=== PATIENT | male | born 1960 | race Hispanic/Latino ===

== ENCOUNTER 2020-03-25 20:03 | Inpatient (IN) | payer OTHER ==
[~2020-03-25] VITALS: Ht 165.1 cm; Wt 61.1 kg
[2020-03-25 21:25] LABS: APPEARANCE,URINE Clear (CLEAR); BILIRUBIN,URINE Negative (NEGATIVE); COLOR,URINE Yellow (YELLOW); GLUCOSE, URINE (UA) TRACE mg/dL (NEGATIVE); KETONES,URINE Negative (NEGATIVE); LEUKOCYTE ESTERASE ,URINE Negative (NEGATIVE); NITRATE,URINE Negative (NEGATIVE); OCCULT BLOOD,URINE Nonhemolyzed Trace (NEGATIVE); PROTEIN,URINE Negative (NEGATIVE)
[2020-03-25 21:35] LABS: ABG BASE EXCESS -1.3 mmol/L (-2.0-3.0); ABG HCO3 22.6 mmol/L (21.0-28.0); ABG OXYGEN SATURATION 96.9 % (95.0-99.0); ABG PCO2 36 mmHg (35-48)
[2020-03-25] MEDS ORDERED: ALBUTEROL INHALER 90MCG/INH IH ONE (21:35)
[2020-03-25] MEDS ORDERED: DEXAMETHASONE SOD PHOSPHATE 10MG/ML 1ML VIAL ONE (21:36)
[2020-03-25 21:37] LABS: BACTERIA,URINE Rare /HPF (None Seen); RBC,URINE 0-1 /HPF (0-1); SQUAMOUS EPITHELIAL CELL,UR None Seen /HPF (0-2); WBC,URINE 0-1 /HPF (0-1)
[2020-03-25 21:39] LABS: BASOPHILS % (AUTO) 0.2 % (0.0-5.0); HEMATOCRIT 42.8 % (42-54); LYMPHOCYTES % (AUTO) 4.8 % (21.0-51.0); MEAN CORPUSCULAR HEMOGLOBIN 30.2 pg (27.0-33.0); MEAN CORPUSCULAR HGB CONC 34.8 g/dL (32.0-36.0); MEAN CORPUSCULAR VOLUME 86.6 fL (79-99); MONOCYTES % (AUTO) 7.3 % (3.0-13.0); NEUTROPHILS % (AUTO) 85.9 % (40.0-77.0); PLATELET COUNT (AUTO) 503 K/uL (130-400); RED BLOOD CELL COUNT(AUTO) 4.94 MIL/uL (4.50-6.20); RED CELL DISTRIBUTION WIDTH 12.4 % (11.0-15.5); WHITE BLOOD COUNT (AUTO) 13.6 K/uL (4.8-10.8)
[2020-03-25 21:53] LABS: INR 1.04 (0.85-1.15); PARTIAL THROMBOPLASTIN TIME 25.2 SEC (26.3-35.5); PROTHROMBIN TIME 11.2 SEC (9.6-11.6)
[2020-03-25 21:55] LABS: CREATININE 0.9 mg/dL (0.5-1.5); POTASSIUM 4.4 mmol/L (3.5-5.1)
[2020-03-25 22:00] LABS: ALBUMIN 2.7 g/dL (3.5-5.0); BILIRUBIN,TOTAL 0.4 mg/dL (0.2-1.0); TOTAL PROTEIN, SERUM 7.1 g/dL (6.0-8.3)
[2020-03-25] MEDS ORDERED: LEVOFLOXACIN 500 MG/D5W 100 ML 100 ML ONE (22:00)
[2020-03-25 22:06] LABS: B-TYPE NATRIURETIC PEPTIDE 20 pg/mL (0-100)
[2020-03-26] MEDS ORDERED: ONDANSETRON HCL 4 MG/2 ML VIAL IV PRN (07:00)
[2020-03-26] MEDS ORDERED: NITROGLYCERIN 0.4 MG SL TAB SL PRN (07:00)
[2020-03-26] MEDS: CEFTRIAXONE SODIUM 1 GM IVP SCH ×2 (07:00→19:00)
[2020-03-26] MEDS ORDERED: AZITHROMYCIN 500MG+NS 250ML 250 ML IV SCH (07:00)
[2020-03-26] MEDS ORDERED: GUAIFENESIN-DM 200/20 MG 10 ML PO PRN (07:00)
[2020-03-26] MEDS ORDERED: LACTULOSE 20 GM/30 ML UDCUP PO PRN (07:00)
[2020-03-26] MEDS: ERGOCALCIFEROL (VITAMIN D2) 50,000 UNIT CAPSULE PO SCH (07:00)
[2020-03-26] MEDS ORDERED: ACETAMINOPHEN 325 MG TAB PO PRN (07:00)
[2020-03-26] MEDS ORDERED: MORPHINE SULFATE 2 MG/ML 1ML SYG IV PRN (07:00)
[2020-03-26] MEDS ORDERED: ERGOCALCIFEROL (VITAMIN D2) 50,000 UNIT CAPSULE ONE (08:32)
[2020-03-26] MEDS ORDERED: DOXYCYCLINE HYCLATE 100 MG TABLET PO ONE ×2 (08:32→21:35)
[2020-03-26] MEDS ORDERED: METHYLPREDNISOLONE SOD SUCC 40MG/ML 1ML ONE ×3 (08:32→21:34)
[2020-03-26] MEDS ORDERED: ASCORBIC ACID 500 MG TAB ONE (08:32)
[2020-03-26] MEDS ORDERED: ZINC SULFATE 220 CAPSULE ONE (08:33)
[2020-03-26] MEDS ORDERED: AZITHROMYCIN 500MG+NS 250ML 250 ML IV ONE (08:33)
[2020-03-26] MEDS ORDERED: BENZONATATE 100 MG CAPSULE PO ONE ×3 (08:33→21:35)
[2020-03-26] MEDS ORDERED: ENOXAPARIN SODIUM 40 MG/0.4 ML SYRINGE SQ ONE (08:33)
[2020-03-26] MEDS ORDERED: CEFTRIAXONE SODIUM 1 GM ONE ×2 (08:34→21:35)
[2020-03-26] MEDS ORDERED: FAMOTIDINE/PF 20 MG/2 ML VIAL IV ONE ×2 (08:34→21:36)
[2020-03-26] MEDS ORDERED: SODIUM CHLORIDE 0.9% 50 ML IV ONE (08:35)
[2020-03-26] MEDS ORDERED: ENOXAPARIN SODIUM 40 MG/0.4 ML SYRINGE SQ SCH ×2 (09:00)
[2020-03-26] MEDS: FAMOTIDINE/PF 20 MG/2 ML VIAL IV SCH ×2 (09:00→21:00)
[2020-03-26] MEDS: ZINC SULFATE 220 CAPSULE PO SCH (09:00)
[2020-03-26] MEDS ORDERED: DOXYCYCLINE HYCLATE 100 MG TABLET PO SCH (09:00)
[2020-03-26] MEDS: ASCORBIC ACID 500 MG TAB PO SCH (09:00)
[2020-03-26] MEDS: BENZONATATE 100 MG CAPSULE PO SCH ×3 (09:00→21:00)
[2020-03-26] MEDS: METHYLPREDNISOLONE SOD SUCC 40MG/ML 1ML IVP SCH ×3 (09:00→21:00)
[2020-03-26] MEDS: ALBUTEROL INHALER 90MCG/INH IH SCH ×4 (10:00→22:00)
[2020-03-26] MEDS ORDERED: PHARMACY COMMUNICATION MISC SCH (12:00)
[2020-03-26] MEDS: PHARMACY COMMUNICATION**REMDESIVIR ORDER MISC SCH ×2 (13:00→21:00)
[2020-03-26] MEDS ORDERED: PHARMACY COMMUNICATION** REMDESIVIR ORDER MISC SCH (13:15)
[2020-03-26] MEDS: ENOXAPARIN SODIUM 80 MG/0.8 ML SQ SCH (21:00)
[2020-03-27] MEDS: ALBUTEROL INHALER 90MCG/INH IH SCH ×6 (02:00→20:01)
[2020-03-27] MEDS: PHARMACY COMMUNICATION**REMDESIVIR ORDER MISC SCH ×3 (05:00→20:01)
[2020-03-27 05:29] LABS: BASOPHILS % (AUTO) 0.2 % (0.0-5.0); HEMATOCRIT 43.4 % (42-54); LYMPHOCYTES % (AUTO) 6.3 % (21.0-51.0); MEAN CORPUSCULAR HEMOGLOBIN 29.1 pg (27.0-33.0); MEAN CORPUSCULAR HGB CONC 33.6 g/dL (32.0-36.0); MEAN CORPUSCULAR VOLUME 86.5 fL (79-99); MONOCYTES % (AUTO) 6.4 % (3.0-13.0); NEUTROPHILS % (AUTO) 84.2 % (40.0-77.0); PLATELET COUNT (AUTO) 425 K/uL (130-400); RED BLOOD CELL COUNT(AUTO) 5.02 MIL/uL (4.50-6.20); RED CELL DISTRIBUTION WIDTH 12.2 % (11.0-15.5); WHITE BLOOD COUNT (AUTO) 12.9 K/uL (4.8-10.8)
[2020-03-27 05:48] LABS: ALANINE AMINOTRANSFERASE 54 U/L (12-78); ALBUMIN 2.9 g/dL (3.5-5.0); ASPARTATE AMINOTRANSFERASE 21 U/L (10-37); BILIRUBIN,TOTAL 0.6 mg/dL (0.2-1.0); CARBON DIOXIDE 27 mmol/L (21-32); CHLORIDE 101 mmol/L (101-111); CREATININE 0.9 mg/dL (0.5-1.5); GLOMERULAR FILTR. RATE CALC 91 mL/min (>60); GLUCOSE,RANDOM 254 mg/dL (70-105); LACTATE DEHYDROGENASE 499 U/L (81-234); POTASSIUM 4.5 mmol/L (3.5-5.1); SODIUM SERUM 137 mmol/L (136-145); TOTAL PROTEIN, SERUM 7.5 g/dL (6.0-8.3); UREA NITROGEN, BLOOD 21 mg/dL (7-18)
[2020-03-27] MEDS: CEFTRIAXONE SODIUM 1 GM IVP SCH ×2 (07:00→20:01)
[2020-03-27] MEDS: ERGOCALCIFEROL (VITAMIN D2) 50,000 UNIT CAPSULE PO SCH (07:00)
[2020-03-27] MEDS: INSULIN HUMULIN R 100 UNIT/ML 3ML SQ SCH ×4 (07:30→21:25)
[2020-03-27] MEDS ORDERED: ENOXAPARIN SODIUM 80 MG/0.8 ML SQ ONE (08:57)
[2020-03-27] MEDS ORDERED: ASCORBIC ACID 500 MG TAB ONE (08:57)
[2020-03-27] MEDS ORDERED: METHYLPREDNISOLONE SOD SUCC 40MG/ML 1ML ONE ×2 (08:57→13:11)
[2020-03-27] MEDS ORDERED: ZINC SULFATE 220 CAPSULE ONE (08:58)
[2020-03-27] MEDS ORDERED: BENZONATATE 100 MG CAPSULE PO ONE ×2 (08:58→13:04)
[2020-03-27] MEDS ORDERED: CEFTRIAXONE SODIUM 1 GM ONE (08:58)
[2020-03-27] MEDS ORDERED: ERGOCALCIFEROL (VITAMIN D2) 50,000 UNIT CAPSULE ONE (08:58)
[2020-03-27] MEDS ORDERED: FAMOTIDINE/PF 20 MG/2 ML VIAL IV ONE (08:59)
[2020-03-27] MEDS: BENZONATATE 100 MG CAPSULE PO SCH ×3 (09:00→20:01)
[2020-03-27] MEDS: ZINC SULFATE 220 CAPSULE PO SCH (09:00)
[2020-03-27] MEDS ORDERED: INSULIN HUMULIN R 100 UNIT/ML 3ML ONE ×3 (09:00→16:50)
[2020-03-27] MEDS: ENOXAPARIN SODIUM 80 MG/0.8 ML SQ SCH ×2 (09:00→20:03)
[2020-03-27] MEDS: ASCORBIC ACID 500 MG TAB PO SCH (09:00)
[2020-03-27] MEDS: METHYLPREDNISOLONE SOD SUCC 40MG/ML 1ML IVP SCH ×3 (09:00→20:01)
[2020-03-27] MEDS: FAMOTIDINE/PF 20 MG/2 ML VIAL IV SCH ×2 (09:00→20:01)
[2020-03-27] MEDS ORDERED: REMDESIVIR (EUA) 520 200 MG in SODIUM CHLORIDE 0.9% 250 ML IV SCH (11:15)
[2020-03-27] MEDS ORDERED: COMPOUND IV REFRIGERATED 1 EACH IVSOLN MISC PRN (11:15)
--- NOTE | 2020-03-27 13:15 | NUR ---
MARA MARSHALL Spoke to patient's spouse (Lashae Keller [phone]) via phone. As per spouse, patient lives at address listed on file with spouse, and has no DME or home services. Mrs Keller states that she is COVID positive as of 03/25/20 with 4 days worth of symptoms before testing. She is quarantining at home, and I explained to her that she being able to help transport patient home upon discharge is not advisable. CM to follow up. Addendum: 03/27/20 at 1320 by MARYSOL PERALTA Amended: Links added.
[2020-03-27 18:30] VITALS: BP 131/76
[2020-03-27 20:36] VITALS: BP 133/74
[2020-03-27 23:37] VITALS: BP_SYST 117
[2020-03-28] MEDS: ALBUTEROL INHALER 90MCG/INH IH SCH ×6 (02:44→22:00)
[2020-03-28 03:57] VITALS: BP 120/64
[2020-03-28 04:26] LABS: BASOPHILS % (AUTO) 0.3 % (0.0-5.0); HEMATOCRIT 41.5 % (42-54); LYMPHOCYTES % (AUTO) 6.1 % (21.0-51.0); MEAN CORPUSCULAR HEMOGLOBIN 29.6 pg (27.0-33.0); MEAN CORPUSCULAR HGB CONC 34.7 g/dL (32.0-36.0); MEAN CORPUSCULAR VOLUME 85.4 fL (79-99); MONOCYTES % (AUTO) 6.3 % (3.0-13.0); NEUTROPHILS % (AUTO) 82.9 % (40.0-77.0); PLATELET COUNT (AUTO) 467 K/uL (130-400); RED BLOOD CELL COUNT(AUTO) 4.86 MIL/uL (4.50-6.20); RED CELL DISTRIBUTION WIDTH 12.1 % (11.0-15.5)
[2020-03-28] MEDS: PHARMACY COMMUNICATION**REMDESIVIR ORDER MISC SCH ×3 (04:27→20:58)
[2020-03-28 04:44] LABS: ALANINE AMINOTRANSFERASE 42 U/L (12-78); ALBUMIN 2.6 g/dL (3.5-5.0); ASPARTATE AMINOTRANSFERASE 17 U/L (10-37); BILIRUBIN,TOTAL 0.5 mg/dL (0.2-1.0); CARBON DIOXIDE 27 mmol/L (21-32); CHLORIDE 100 mmol/L (101-111); CREATININE 0.8 mg/dL (0.5-1.5); GLOMERULAR FILTR. RATE CALC 104 mL/min (>60); GLUCOSE,RANDOM 173 mg/dL (70-105); LACTATE DEHYDROGENASE 454 U/L (81-234); POTASSIUM 4.6 mmol/L (3.5-5.1); SODIUM SERUM 136 mmol/L (136-145); TOTAL PROTEIN, SERUM 6.8 g/dL (6.0-8.3); UREA NITROGEN, BLOOD 22 mg/dL (7-18)
[2020-03-28] MEDS: PHARMACY COMMUNICATION MISC SCH (05:24)
[2020-03-28] MEDS: ERGOCALCIFEROL (VITAMIN D2) 50,000 UNIT CAPSULE PO SCH (05:27)
[2020-03-28] MEDS: INSULIN HUMULIN R 100 UNIT/ML 3ML SQ SCH ×4 (05:47→20:59)
[2020-03-28 08:26] VITALS: BP 118/74
[2020-03-28] MEDS: ASCORBIC ACID 500 MG TAB PO SCH (08:48)
[2020-03-28] MEDS: FAMOTIDINE/PF 20 MG/2 ML VIAL IV SCH ×2 (08:48→20:58)
[2020-03-28] MEDS: CEFTRIAXONE SODIUM 1 GM IVP SCH ×2 (08:49→20:58)
[2020-03-28] MEDS: ZINC SULFATE 220 CAPSULE PO SCH (08:49)
[2020-03-28] MEDS: ENOXAPARIN SODIUM 80 MG/0.8 ML SQ SCH ×2 (08:50→20:58)
[2020-03-28] MEDS: METHYLPREDNISOLONE SOD SUCC 40MG/ML 1ML IVP SCH ×3 (08:53→20:58)
[2020-03-28] MEDS: BENZONATATE 100 MG CAPSULE PO SCH ×3 (08:53→20:58)
[2020-03-28 12:11] VITALS: BP 108/60
[2020-03-28] MEDS: REMDESIVIR (EUA) 520 100 MG in SODIUM CHLORIDE 0.9% 250 ML IV SCH (13:03)
[2020-03-28 15:25] VITALS: BP 108/76
[2020-03-28 19:00] VITALS: BP 118/51
[2020-03-28 23:00] VITALS: BP 122/62
[2020-03-28] MEDS: INSULIN GLARGINE 100 UNITS/ML 10 ML VIAL SQ SCH (23:30)
[2020-03-29] MEDS: ALBUTEROL INHALER 90MCG/INH IH SCH ×6 (02:00→19:52)
[2020-03-29 03:00] VITALS: BP 117/70
[2020-03-29 04:36] LABS: BASOPHILS % (AUTO) 0.3 % (0.0-5.0); HEMATOCRIT 40.8 % (42-54); LYMPHOCYTES % (AUTO) 5.8 % (21.0-51.0); MEAN CORPUSCULAR HEMOGLOBIN 29.7 pg (27.0-33.0); MEAN CORPUSCULAR HGB CONC 34.8 g/dL (32.0-36.0); MEAN CORPUSCULAR VOLUME 85.4 fL (79-99); MONOCYTES % (AUTO) 5.5 % (3.0-13.0); NEUTROPHILS % (AUTO) 84.3 % (40.0-77.0); PLATELET COUNT (AUTO) 484 K/uL (130-400); RED BLOOD CELL COUNT(AUTO) 4.78 MIL/uL (4.50-6.20); RED CELL DISTRIBUTION WIDTH 12.1 % (11.0-15.5); WHITE BLOOD COUNT (AUTO) 14.5 K/uL (4.8-10.8)
[2020-03-29 04:50] LABS: ALANINE AMINOTRANSFERASE 32 U/L (12-78); ALBUMIN 2.5 g/dL (3.5-5.0); ASPARTATE AMINOTRANSFERASE 16 U/L (10-37); BILIRUBIN,TOTAL 0.5 mg/dL (0.2-1.0); CARBON DIOXIDE 27 mmol/L (21-32); CHLORIDE 99 mmol/L (101-111); CREATININE 0.7 mg/dL (0.5-1.5); GLOMERULAR FILTR. RATE CALC 121 mL/min (>60); GLUCOSE,RANDOM 194 mg/dL (70-105); LACTATE DEHYDROGENASE 473 U/L (81-234); POTASSIUM 4.7 mmol/L (3.5-5.1); SODIUM SERUM 135 mmol/L (136-145); TOTAL PROTEIN, SERUM 6.6 g/dL (6.0-8.3); UREA NITROGEN, BLOOD 25 mg/dL (7-18)
[2020-03-29] MEDS: PHARMACY COMMUNICATION MISC SCH (05:42)
[2020-03-29] MEDS: PHARMACY COMMUNICATION**REMDESIVIR ORDER MISC SCH ×3 (05:44→19:50)
[2020-03-29] MEDS: ERGOCALCIFEROL (VITAMIN D2) 50,000 UNIT CAPSULE PO SCH (06:05)
[2020-03-29] MEDS: INSULIN HUMULIN R 100 UNIT/ML 3ML SQ SCH ×7 (06:43→19:51)
[2020-03-29] MEDS: FAMOTIDINE/PF 20 MG/2 ML VIAL IV SCH ×2 (09:13→19:49)
[2020-03-29] MEDS: CEFTRIAXONE SODIUM 1 GM IVP SCH ×2 (09:13→19:49)
[2020-03-29] MEDS: ASCORBIC ACID 500 MG TAB PO SCH (09:14)
[2020-03-29] MEDS: ZINC SULFATE 220 CAPSULE PO SCH (09:14)
[2020-03-29] MEDS: METHYLPREDNISOLONE SOD SUCC 40MG/ML 1ML IVP SCH ×3 (09:14→19:49)
[2020-03-29] MEDS: BENZONATATE 100 MG CAPSULE PO SCH ×3 (09:14→19:50)
[2020-03-29] MEDS: ENOXAPARIN SODIUM 80 MG/0.8 ML SQ SCH ×2 (09:15→19:52)
[2020-03-29 09:33] VITALS: BP 95/54
[2020-03-29 12:25] VITALS: BP 116/67
[2020-03-29] MEDS: REMDESIVIR (EUA) 520 100 MG in SODIUM CHLORIDE 0.9% 250 ML IV SCH (13:26)
[2020-03-29 16:30] VITALS: BP 111/67
[2020-03-29 19:00] VITALS: BP 101/53
[2020-03-29] MEDS: INSULIN GLARGINE 100 UNITS/ML 10 ML VIAL SQ SCH (19:51)
[2020-03-29 23:00] VITALS: BP 121/60
[2020-03-30] MEDS: ALBUTEROL INHALER 90MCG/INH IH SCH ×3 (01:20→22:00)
[2020-03-30] MEDS: ACETAMINOPHEN 325 MG TAB PO PRN (02:38)
[2020-03-30 03:00] VITALS: BP 112/71
[2020-03-30] MEDS: PHARMACY COMMUNICATION**REMDESIVIR ORDER MISC SCH ×3 (04:09→20:37)
[2020-03-30] MEDS: PHARMACY COMMUNICATION MISC SCH (04:24)
[2020-03-30 04:54] LABS: BASOPHILS % (AUTO) 0.2 % (0.0-5.0); EOSINOPHILS % (AUTO) 0.1 % (0.0-8.0); HEMATOCRIT 42.7 % (42-54); MEAN CORPUSCULAR HEMOGLOBIN 29.5 pg (27.0-33.0); MEAN CORPUSCULAR HGB CONC 34.7 g/dL (32.0-36.0); MEAN CORPUSCULAR VOLUME 85.2 fL (79-99); MONOCYTES % (AUTO) 4.3 % (3.0-13.0); NEUTROPHILS % (AUTO) 87.8 % (40.0-77.0); PLATELET COUNT (AUTO) 498 K/uL (130-400); RED BLOOD CELL COUNT(AUTO) 5.01 MIL/uL (4.50-6.20); RED CELL DISTRIBUTION WIDTH 12.3 % (11.0-15.5); WHITE BLOOD COUNT (AUTO) 15.5 K/uL (4.8-10.8)
[2020-03-30 05:12] LABS: ALBUMIN 2.6 g/dL (3.5-5.0); BILIRUBIN,TOTAL 0.5 mg/dL (0.2-1.0); CREATININE 0.8 mg/dL (0.5-1.5); CRP QUANTITATIVE 36.9 mg/L (0.00-9.0); TOTAL PROTEIN, SERUM 6.8 g/dL (6.0-8.3)
[2020-03-30] MEDS: ERGOCALCIFEROL (VITAMIN D2) 50,000 UNIT CAPSULE PO SCH (05:28)
[2020-03-30] MEDS: INSULIN HUMULIN R 100 UNIT/ML 3ML SQ SCH ×8 (05:29→20:37)
[2020-03-30 08:00] VITALS: BP 141/68
[2020-03-30] MEDS: FAMOTIDINE/PF 20 MG/2 ML VIAL IV SCH ×2 (09:45→20:25)
[2020-03-30] MEDS: ZINC SULFATE 220 CAPSULE PO SCH (09:49)
[2020-03-30] MEDS: DEXAMETHASONE SOD PHOSPHATE 4 MG/ML 1ML VIAL IVP SCH (09:49)
[2020-03-30] MEDS: ASCORBIC ACID 500 MG TAB PO SCH (09:49)
[2020-03-30] MEDS: CEFTRIAXONE SODIUM 1 GM IVP SCH ×2 (09:49→20:25)
[2020-03-30] MEDS: BENZONATATE 100 MG CAPSULE PO SCH ×3 (09:49→20:35)
[2020-03-30] MEDS: ENOXAPARIN SODIUM 80 MG/0.8 ML SQ SCH ×2 (09:50→20:28)
[2020-03-30 12:00] VITALS: BP 105/62
[2020-03-30] MEDS: REMDESIVIR (EUA) 520 100 MG in SODIUM CHLORIDE 0.9% 250 ML IV SCH (13:31)
[2020-03-30 16:00] VITALS: BP 106/64
[2020-03-30 20:00] VITALS: BP 103/59
[2020-03-30] MEDS: INSULIN GLARGINE 100 UNITS/ML 10 ML VIAL SQ SCH (20:28)
[2020-03-31] VITALS: BP 106/69
[2020-03-31] MEDS: ACETAMINOPHEN 325 MG TAB PO PRN (00:46)
[2020-03-31] MEDS: ALBUTEROL INHALER 90MCG/INH IH SCH ×6 (02:00→21:05)
[2020-03-31 03:41] VITALS: BP 116/48
[2020-03-31] MEDS: PHARMACY COMMUNICATION**REMDESIVIR ORDER MISC SCH ×3 (04:22→20:26)
[2020-03-31 05:26] LABS: BASOPHILS % (AUTO) 0.3 % (0.0-5.0); EOSINOPHILS % (AUTO) 0.8 % (0.0-8.0); HEMATOCRIT 42.1 % (42-54); LYMPHOCYTES % (AUTO) 8.2 % (21.0-51.0); MEAN CORPUSCULAR HEMOGLOBIN 29.5 pg (27.0-33.0); MEAN CORPUSCULAR HGB CONC 34.4 g/dL (32.0-36.0); MEAN CORPUSCULAR VOLUME 85.7 fL (79-99); MONOCYTES % (AUTO) 5.5 % (3.0-13.0); NEUTROPHILS % (AUTO) 83.2 % (40.0-77.0); PLATELET COUNT (AUTO) 516 K/uL (130-400); RED BLOOD CELL COUNT(AUTO) 4.91 MIL/uL (4.50-6.20); RED CELL DISTRIBUTION WIDTH 12.3 % (11.0-15.5); WHITE BLOOD COUNT (AUTO) 18.4 K/uL (4.8-10.8)
[2020-03-31] MEDS: INSULIN HUMULIN R 100 UNIT/ML 3ML SQ SCH ×7 (05:39→20:48)
[2020-03-31 05:44] LABS: ALBUMIN 2.6 g/dL (3.5-5.0); BILIRUBIN,TOTAL 0.6 mg/dL (0.2-1.0); CREATININE 0.9 mg/dL (0.5-1.5); CRP QUANTITATIVE 49.1 mg/L (0.00-9.0); POTASSIUM 4.2 mmol/L (3.5-5.1); TOTAL PROTEIN, SERUM 6.6 g/dL (6.0-8.3)
[2020-03-31] MEDS: PHARMACY COMMUNICATION MISC SCH (06:00)
[2020-03-31 08:00] VITALS: BP 100/61
[2020-03-31] MEDS: ENOXAPARIN SODIUM 80 MG/0.8 ML SQ SCH ×2 (08:23→20:21)
[2020-03-31] MEDS: DEXAMETHASONE SOD PHOSPHATE 4 MG/ML 1ML VIAL IVP SCH (08:23)
[2020-03-31] MEDS: BENZONATATE 100 MG CAPSULE PO SCH ×3 (08:23→20:21)
[2020-03-31] MEDS: FAMOTIDINE/PF 20 MG/2 ML VIAL IV SCH ×2 (08:24→20:21)
[2020-03-31] MEDS: ZINC SULFATE 220 CAPSULE PO SCH (08:24)
[2020-03-31] MEDS: ASCORBIC ACID 500 MG TAB PO SCH (08:24)
[2020-03-31] MEDS: CEFTRIAXONE SODIUM 1 GM IVP SCH ×2 (08:24→20:21)
[2020-03-31 12:00] VITALS: BP 94/56
[2020-03-31] MEDS: REMDESIVIR (EUA) 520 100 MG in SODIUM CHLORIDE 0.9% 250 ML IV SCH (13:19)
[2020-03-31 16:00] VITALS: BP 124/66
[2020-03-31] MEDS: INSULIN GLARGINE 100 UNITS/ML 10 ML VIAL SQ SCH (20:49)
[2020-03-31 21:30] VITALS: BP 114/67
[2020-04-01] VITALS (7 sets, daily range): BP systolic 94–119; BP diastolic 52–66
[2020-04-01] MEDS: ALBUTEROL INHALER 90MCG/INH IH SCH ×6 (02:40→20:04)
--- NOTE | 2020-04-01 04:10 | NUR ---
NOTE ELTON FLORES REPORTED UPON ASSESSING PT'S VS HIS O2 WAS FLUCTUATING FROM 88-90% WITH THE 6 L O2 VIA NC. I ASSESSED PT AND HIS O2 WAS 92%. PT SITTING UP IN BED AWAKE WATCHING TV. NO REPORTS OF DYSPNEA OR SOB, PT REPORTS HE FEELS "FINE". ENCOURAGED PT TO NOTIFY ME IF HE FEELS IF HE NEEDS EXTRA ASSISTANCE WITH HIS OXYGENATION- PT VERBALIZED UNDERSTANDING.
[2020-04-01 04:44] LABS: BASOPHILS % (AUTO) 0.2 % (0.0-5.0); EOSINOPHILS % (AUTO) 0.4 % (0.0-8.0); HEMATOCRIT 41.4 % (42-54); LYMPHOCYTES % (AUTO) 6.9 % (21.0-51.0); MEAN CORPUSCULAR HEMOGLOBIN 29.3 pg (27.0-33.0); MEAN CORPUSCULAR HGB CONC 34.3 g/dL (32.0-36.0); MEAN CORPUSCULAR VOLUME 85.4 fL (79-99); MONOCYTES % (AUTO) 6.7 % (3.0-13.0); NEUTROPHILS % (AUTO) 84.5 % (40.0-77.0); PLATELET COUNT (AUTO) 460 K/uL (130-400); RED BLOOD CELL COUNT(AUTO) 4.85 MIL/uL (4.50-6.20); RED CELL DISTRIBUTION WIDTH 12.5 % (11.0-15.5)
[2020-04-01] MEDS: PHARMACY COMMUNICATION**REMDESIVIR ORDER MISC SCH ×3 (05:00→19:10)
[2020-04-01 05:07] LABS: ALBUMIN 2.5 g/dL (3.5-5.0); BILIRUBIN,TOTAL 0.6 mg/dL (0.2-1.0); CREATININE 0.8 mg/dL (0.5-1.5); CRP QUANTITATIVE 104.6 mg/L (0.00-9.0); POTASSIUM 4.1 mmol/L (3.5-5.1); TOTAL PROTEIN, SERUM 6.5 g/dL (6.0-8.3)
[2020-04-01] MEDS: INSULIN HUMULIN R 100 UNIT/ML 3ML SQ SCH ×9 (05:20→20:08)
[2020-04-01] MEDS: PHARMACY COMMUNICATION MISC SCH (06:00)
--- NOTE | 2020-04-01 06:20 | NUR ---
NOTE PT CALLED [facility] OPERATOR LIGHT THAT HE NEEDED HELP. PT SITTING ON EDGE OF BED WITH NC ON. PT REPORTS THAT HE GOT UP TO GO TO THE BATHROOM AND THEN BEGAN HAVING DYSPNEA AND SOB. RR 22, SpO2 74%. PLACED PT ON VENTI MASK AT 10 L. AFTER 3 2 MINS PT SpO2 93%, HR 86, RR 20. TEACHING FOR BREATHING TECHNIQUES GIVEN- PT VERBALIZED UNDERSTANDING. PT NO LONGER HAVING DYSPNEA OR SOB. PT PLACED HIMSELF IN THE PRONE POSITION. ENCOURAGED THE PT TO CALL IF HE NEEDS ANY HELP- PT VERBALIZED UNDERSTANDING.
[2020-04-01] MEDS: ASCORBIC ACID 500 MG TAB PO SCH (08:01)
[2020-04-01] MEDS: CEFTRIAXONE SODIUM 1 GM IVP SCH ×2 (08:01→20:01)
[2020-04-01] MEDS: DEXAMETHASONE SOD PHOSPHATE 4 MG/ML 1ML VIAL IVP SCH (08:01)
[2020-04-01] MEDS: FAMOTIDINE/PF 20 MG/2 ML VIAL IV SCH ×2 (08:01→20:01)
[2020-04-01] MEDS: ZINC SULFATE 220 CAPSULE PO SCH (08:01)
[2020-04-01] MEDS: ENOXAPARIN SODIUM 80 MG/0.8 ML SQ SCH ×2 (08:02→20:01)
[2020-04-01] MEDS: BENZONATATE 100 MG CAPSULE PO SCH ×3 (08:10→20:01)
[2020-04-01] MEDS: INSULIN GLARGINE 100 UNITS/ML 10 ML VIAL SQ SCH (20:03)
[2020-04-02] MEDS: ALBUTEROL INHALER 90MCG/INH IH SCH ×3 (02:00→10:23)
[2020-04-02 04:04] VITALS: BP 107/58
[2020-04-02] MEDS: PHARMACY COMMUNICATION**REMDESIVIR ORDER MISC SCH (04:05)
[2020-04-02] MEDS: INSULIN HUMULIN R 100 UNIT/ML 3ML SQ SCH ×6 (05:30→20:34)
[2020-04-02 05:47] LABS: BASOPHILS % (AUTO) 0.1 % (0.0-5.0); EOSINOPHILS % (AUTO) 0.3 % (0.0-8.0); LYMPHOCYTES % (AUTO) 7.3 % (21.0-51.0); MEAN CORPUSCULAR HEMOGLOBIN 29.6 pg (27.0-33.0); MEAN CORPUSCULAR HGB CONC 34.6 g/dL (32.0-36.0); MEAN CORPUSCULAR VOLUME 85.6 fL (79-99); MONOCYTES % (AUTO) 8.7 % (3.0-13.0); NEUTROPHILS % (AUTO) 81.8 % (40.0-77.0); PLATELET COUNT (AUTO) 494 K/uL (130-400); RED BLOOD CELL COUNT(AUTO) 4.79 MIL/uL (4.50-6.20); RED CELL DISTRIBUTION WIDTH 12.4 % (11.0-15.5); WHITE BLOOD COUNT (AUTO) 15.9 K/uL (4.8-10.8)
[2020-04-02 06:09] LABS: ALBUMIN 2.6 g/dL (3.5-5.0); BILIRUBIN,TOTAL 0.6 mg/dL (0.2-1.0); CREATININE 0.8 mg/dL (0.5-1.5); POTASSIUM 3.8 mmol/L (3.5-5.1); TOTAL PROTEIN, SERUM 6.6 g/dL (6.0-8.3)
[2020-04-02 07:00] VITALS: BP 106/61
[2020-04-02] MEDS: FAMOTIDINE/PF 20 MG/2 ML VIAL IV SCH (09:41)
[2020-04-02] MEDS: ZINC SULFATE 220 CAPSULE PO SCH (09:41)
[2020-04-02] MEDS: DEXAMETHASONE SOD PHOSPHATE 4 MG/ML 1ML VIAL IVP SCH (09:41)
[2020-04-02] MEDS: ENOXAPARIN SODIUM 80 MG/0.8 ML SQ SCH (09:41)
[2020-04-02] MEDS: BENZONATATE 100 MG CAPSULE PO SCH ×3 (09:41→20:32)
[2020-04-02] MEDS: CEFTRIAXONE SODIUM 1 GM IVP SCH (09:41)
[2020-04-02] MEDS: ASCORBIC ACID 500 MG TAB PO SCH (09:57)
[2020-04-02 11:00] VITALS: BP 132/60
[2020-04-02 15:00] VITALS: BP 100/60
[2020-04-02] MEDS: FAMOTIDINE 20MG TAB 20 MG TAB PO SCH (20:32)
[2020-04-02] MEDS: INSULIN GLARGINE 100 UNITS/ML 10 ML VIAL SQ SCH (20:33)
[2020-04-02 20:36] VITALS: BP 95/63
[2020-04-02] MEDS: ENOXAPARIN SODIUM 40 MG/0.4 ML SYRINGE SQ SCH (20:36)
[2020-04-03] VITALS (7 sets, daily range): BP systolic 101–154; BP diastolic 51–85
[2020-04-03 05:29] LABS: BASOPHILS % (AUTO) 0.1 % (0.0-5.0); EOSINOPHILS % (AUTO) 0.2 % (0.0-8.0); HEMATOCRIT 41.3 % (42-54); LYMPHOCYTES % (AUTO) 9.1 % (21.0-51.0); MEAN CORPUSCULAR HEMOGLOBIN 29.4 pg (27.0-33.0); MEAN CORPUSCULAR HGB CONC 34.1 g/dL (32.0-36.0); MEAN CORPUSCULAR VOLUME 86.2 fL (79-99); MONOCYTES % (AUTO) 9.8 % (3.0-13.0); NEUTROPHILS % (AUTO) 79.2 % (40.0-77.0); PLATELET COUNT (AUTO) 478 K/uL (130-400); RED BLOOD CELL COUNT(AUTO) 4.79 MIL/uL (4.50-6.20); RED CELL DISTRIBUTION WIDTH 12.2 % (11.0-15.5); WHITE BLOOD COUNT (AUTO) 12.1 K/uL (4.8-10.8)
[2020-04-03] MEDS: INSULIN HUMULIN R 100 UNIT/ML 3ML SQ SCH ×7 (05:48→20:43)
[2020-04-03 06:05] LABS: ALANINE AMINOTRANSFERASE 24 U/L (12-78); ALBUMIN 2.5 g/dL (3.5-5.0); ASPARTATE AMINOTRANSFERASE 17 U/L (10-37); BILIRUBIN,TOTAL 0.7 mg/dL (0.2-1.0); CARBON DIOXIDE 28 mmol/L (21-32); CHLORIDE 99 mmol/L (101-111); CREATININE 0.9 mg/dL (0.5-1.5); GLOMERULAR FILTR. RATE CALC 91 mL/min (>60); GLUCOSE,RANDOM 74 mg/dL (70-105); LACTATE DEHYDROGENASE 291 U/L (81-234); POTASSIUM 4.2 mmol/L (3.5-5.1); SODIUM SERUM 135 mmol/L (136-145); TOTAL PROTEIN, SERUM 6.5 g/dL (6.0-8.3); UREA NITROGEN, BLOOD 24 mg/dL (7-18)
[2020-04-03] MEDS: FAMOTIDINE 20MG TAB 20 MG TAB PO SCH ×2 (08:56→20:47)
[2020-04-03] MEDS: DEXAMETHASONE 4 MG TAB PO SCH (08:56)
[2020-04-03] MEDS: ASCORBIC ACID 500 MG TAB PO SCH (08:56)
[2020-04-03] MEDS: BENZONATATE 100 MG CAPSULE PO SCH ×3 (08:57→20:47)
[2020-04-03] MEDS: ZINC SULFATE 220 CAPSULE PO SCH (08:57)
[2020-04-03] MEDS: ENOXAPARIN SODIUM 40 MG/0.4 ML SYRINGE SQ SCH ×2 (08:57→20:47)
--- NOTE | 2020-04-03 20:00 | NUR ---
assessment and teaching patient awake, alert, ox3, no sob, no c/o pain at this time, sitting bedside chair, oxygen at 5 l n/c, reinforce prone position , teach patient plan of care and expected outcome,patient verbalizes understanding via teach back
[2020-04-03] MEDS: INSULIN GLARGINE 100 UNITS/ML 10 ML VIAL SQ SCH (21:40)
[2020-04-04 04:08] VITALS: BP 111/64
[2020-04-04 04:54] LABS: BASOPHILS % (AUTO) 0.2 % (0.0-5.0); EOSINOPHILS % (AUTO) 0.1 % (0.0-8.0); HEMATOCRIT 42.5 % (42-54); LYMPHOCYTES % (AUTO) 13.6 % (21.0-51.0); MEAN CORPUSCULAR HEMOGLOBIN 29.4 pg (27.0-33.0); MEAN CORPUSCULAR HGB CONC 34.4 g/dL (32.0-36.0); MEAN CORPUSCULAR VOLUME 85.7 fL (79-99); MONOCYTES % (AUTO) 9.4 % (3.0-13.0); NEUTROPHILS % (AUTO) 75.6 % (40.0-77.0); PLATELET COUNT (AUTO) 455 K/uL (130-400); RED BLOOD CELL COUNT(AUTO) 4.96 MIL/uL (4.50-6.20); RED CELL DISTRIBUTION WIDTH 12.2 % (11.0-15.5); WHITE BLOOD COUNT (AUTO) 11.8 K/uL (4.8-10.8)
[2020-04-04 05:08] LABS: ALANINE AMINOTRANSFERASE 26 U/L (12-78); ALBUMIN 2.7 g/dL (3.5-5.0); ASPARTATE AMINOTRANSFERASE 16 U/L (10-37); BILIRUBIN,TOTAL 0.8 mg/dL (0.2-1.0); CARBON DIOXIDE 28 mmol/L (21-32); CHLORIDE 100 mmol/L (101-111); CREATININE 0.9 mg/dL (0.5-1.5); GLOMERULAR FILTR. RATE CALC 91 mL/min (>60); GLUCOSE,RANDOM 67 mg/dL (70-105); LACTATE DEHYDROGENASE 244 U/L (81-234); POTASSIUM 4.3 mmol/L (3.5-5.1); SODIUM SERUM 135 mmol/L (136-145); TOTAL PROTEIN, SERUM 6.7 g/dL (6.0-8.3); UREA NITROGEN, BLOOD 27 mg/dL (7-18)
[2020-04-04] MEDS: INSULIN HUMULIN R 100 UNIT/ML 3ML SQ SCH ×6 (05:55→23:27)
[2020-04-04 07:45] VITALS: BP 102/73
[2020-04-04] MEDS: DEXAMETHASONE 4 MG TAB PO SCH (09:54)
[2020-04-04] MEDS: FAMOTIDINE 20MG TAB 20 MG TAB PO SCH ×2 (09:54→23:11)
[2020-04-04] MEDS: BENZONATATE 100 MG CAPSULE PO SCH ×3 (09:54→23:12)
[2020-04-04] MEDS: ASCORBIC ACID 500 MG TAB PO SCH (09:54)
[2020-04-04] MEDS: ZINC SULFATE 220 CAPSULE PO SCH (09:55)
[2020-04-04] MEDS: ENOXAPARIN SODIUM 40 MG/0.4 ML SYRINGE SQ SCH ×2 (09:56→23:12)
[2020-04-04 12:00] VITALS: BP 106/76
--- NOTE | 2020-04-04 15:43 | NUR ---
RDSCREEN - LOS X 9 Pt admitted for Acute hypoxic respiratory failure. Pt tolerating Heart Healthy diet order with no report of GI distress. Pt eats slowly but no chewing or swallowing difficulty as per RN. 4 attempts to reach patient via working phone, verified by RN. Able to discuss food preferences and menu reading via RN. Pt was sitting up in chair and later in shower when attempting to call. Pt with Lantus, Humulin R, Zinc, Vitamin C in place. Recommend continue Heart Healthy diet order Recommend Ensure QD RD to continue to monitor. Please notify RD as additional nutrition concerns arise. Thank you. Addendum: 04/04/20 at [address] RD Amended: Links added.
[2020-04-04 16:00] VITALS: BP 111/71
[2020-04-04 19:00] VITALS: BP 102/56
[2020-04-04] MEDS: INSULIN GLARGINE 100 UNITS/ML 10 ML VIAL SQ SCH (21:00)
[2020-04-04 23:00] VITALS: BP 115/66
[2020-04-05 03:00] VITALS: BP 99/58
[2020-04-05 05:34] LABS: BASOPHILS % (AUTO) 0.2 % (0.0-5.0); EOSINOPHILS % (AUTO) 0.2 % (0.0-8.0); HEMATOCRIT 40.8 % (42-54); MEAN CORPUSCULAR HEMOGLOBIN 29.4 pg (27.0-33.0); MEAN CORPUSCULAR HGB CONC 34.6 g/dL (32.0-36.0); MEAN CORPUSCULAR VOLUME 85.2 fL (79-99); MONOCYTES % (AUTO) 9.7 % (3.0-13.0); NEUTROPHILS % (AUTO) 76.6 % (40.0-77.0); PLATELET COUNT (AUTO) 449 K/uL (130-400); RED BLOOD CELL COUNT(AUTO) 4.79 MIL/uL (4.50-6.20); RED CELL DISTRIBUTION WIDTH 12.2 % (11.0-15.5); WHITE BLOOD COUNT (AUTO) 11.9 K/uL (4.8-10.8)
[2020-04-05 05:53] LABS: ALANINE AMINOTRANSFERASE 34 U/L (12-78); ALBUMIN 2.6 g/dL (3.5-5.0); ASPARTATE AMINOTRANSFERASE 16 U/L (10-37); BILIRUBIN,TOTAL 0.7 mg/dL (0.2-1.0); CARBON DIOXIDE 29 mmol/L (21-32); CHLORIDE 102 mmol/L (101-111); CREATININE 0.8 mg/dL (0.5-1.5); GLOMERULAR FILTR. RATE CALC 104 mL/min (>60); GLUCOSE,RANDOM 56 mg/dL (70-105); LACTATE DEHYDROGENASE 239 U/L (81-234); SODIUM SERUM 137 mmol/L (136-145); TOTAL PROTEIN, SERUM 6.3 g/dL (6.0-8.3); UREA NITROGEN, BLOOD 21 mg/dL (7-18)
[2020-04-05] MEDS: INSULIN HUMULIN R 100 UNIT/ML 3ML SQ SCH ×8 (06:05→20:42)
[2020-04-05 08:30] VITALS: BP 127/57
[2020-04-05] MEDS: FAMOTIDINE 20MG TAB 20 MG TAB PO SCH ×2 (09:55→20:53)
[2020-04-05] MEDS: ASCORBIC ACID 500 MG TAB PO SCH (09:55)
[2020-04-05] MEDS: BENZONATATE 100 MG CAPSULE PO SCH ×3 (09:55→20:53)
[2020-04-05] MEDS: DEXAMETHASONE 4 MG TAB PO SCH (09:55)
[2020-04-05] MEDS: ZINC SULFATE 220 CAPSULE PO SCH (09:55)
[2020-04-05] MEDS: ENOXAPARIN SODIUM 40 MG/0.4 ML SYRINGE SQ SCH ×2 (09:56→20:53)
[2020-04-05 12:38] VITALS: BP 115/61
[2020-04-05 16:59] VITALS: BP 90/63
[2020-04-05 19:00] VITALS: BP 125/78
[2020-04-05] MEDS: INSULIN GLARGINE 100 UNITS/ML 10 ML VIAL SQ SCH (20:42)
[2020-04-05 23:00] VITALS: BP 118/53
--- NOTE | 2020-04-06 02:49 | NUR ---
PATIENT A/OX3. NO RESPIRATORY DISTRESS AT REST. PATIENT STATES HE DOES BECOME SOB WHEN AMBULATING TO BR. CURRENTLY ON 3L NC. WILL TRY TO DECREASE THROUGHOUT THE NIGHT IF TOLERATED. CALL LIGHT WITHIN REACH.
[2020-04-06 03:00] VITALS: BP 95/58
[2020-04-06] MEDS: INSULIN HUMULIN R 100 UNIT/ML 3ML SQ SCH ×8 (06:09→22:47)
--- NOTE | 2020-04-06 06:09 | NUR ---
Scheduled insulin not administered. Per MD parameters, do not administer insulin if sugar is 80 or less.
[2020-04-06 08:40] VITALS: BP 101/61
[2020-04-06] MEDS: DEXAMETHASONE 4 MG TAB PO SCH (08:54)
[2020-04-06] MEDS: ASCORBIC ACID 500 MG TAB PO SCH (08:54)
[2020-04-06] MEDS: FAMOTIDINE 20MG TAB 20 MG TAB PO SCH ×2 (08:54→21:35)
[2020-04-06] MEDS: ZINC SULFATE 220 CAPSULE PO SCH (08:54)
[2020-04-06] MEDS: ENOXAPARIN SODIUM 40 MG/0.4 ML SYRINGE SQ SCH ×2 (08:55→21:54)
[2020-04-06] MEDS: BENZONATATE 100 MG CAPSULE PO SCH ×3 (08:55→21:35)
[2020-04-06 12:50] VITALS: BP 109/57
[2020-04-06 17:28] VITALS: BP 101/59
[2020-04-06 20:00] VITALS: BP 95/61
[2020-04-06] MEDS: INSULIN GLARGINE 100 UNITS/ML 10 ML VIAL SQ SCH (21:00)
--- NOTE | 2020-04-06 23:00 | NUR ---
PT BATHED. GIVEN ONLY HUM. R INSULIN 3 UNITS. REFUSED LANTUS. STATED HE WAS AFRAID OF DROPPING IN SUGAR LEVELS. PT BLOOD PRESSURE MINIMAL LOW. O2 STILL IN PLACE HIGH 80S.
[2020-04-06 23:49] VITALS: BP 108/60
[2020-04-07 03:59] VITALS: BP 103/51
[2020-04-07 05:21] LABS: BASOPHILS % (AUTO) 0.2 % (0.0-5.0); EOSINOPHILS % (AUTO) 0.3 % (0.0-8.0); HEMATOCRIT 41.1 % (42-54); LYMPHOCYTES % (AUTO) 17.2 % (21.0-51.0); MEAN CORPUSCULAR HEMOGLOBIN 29.5 pg (27.0-33.0); MEAN CORPUSCULAR HGB CONC 34.3 g/dL (32.0-36.0); MONOCYTES % (AUTO) 8.2 % (3.0-13.0); NEUTROPHILS % (AUTO) 72.7 % (40.0-77.0); PLATELET COUNT (AUTO) 417 K/uL (130-400); RED BLOOD CELL COUNT(AUTO) 4.78 MIL/uL (4.50-6.20); RED CELL DISTRIBUTION WIDTH 12.3 % (11.0-15.5); WHITE BLOOD COUNT (AUTO) 12.1 K/uL (4.8-10.8)
[2020-04-07 06:00] LABS: ALANINE AMINOTRANSFERASE 38 U/L (12-78); ALBUMIN 2.7 g/dL (3.5-5.0); ASPARTATE AMINOTRANSFERASE 19 U/L (10-37); BILIRUBIN,TOTAL 0.6 mg/dL (0.2-1.0); CARBON DIOXIDE 28 mmol/L (21-32); CHLORIDE 102 mmol/L (101-111); CREATININE 0.8 mg/dL (0.5-1.5); GLOMERULAR FILTR. RATE CALC 104 mL/min (>60); GLUCOSE,RANDOM 62 mg/dL (70-105); LACTATE DEHYDROGENASE 204 U/L (81-234); POTASSIUM 3.8 mmol/L (3.5-5.1); SODIUM SERUM 136 mmol/L (136-145); TOTAL PROTEIN, SERUM 6.6 g/dL (6.0-8.3); UREA NITROGEN, BLOOD 24 mg/dL (7-18)
[2020-04-07] MEDS: INSULIN HUMULIN R 100 UNIT/ML 3ML SQ SCH ×7 (06:48→21:16)
[2020-04-07 08:00] VITALS: BP 119/67
[2020-04-07] MEDS: ZINC SULFATE 220 CAPSULE PO SCH (08:24)
[2020-04-07] MEDS: FAMOTIDINE 20MG TAB 20 MG TAB PO SCH ×2 (08:24→21:11)
[2020-04-07] MEDS: ASCORBIC ACID 500 MG TAB PO SCH (08:24)
[2020-04-07] MEDS: DEXAMETHASONE 4 MG TAB PO SCH (08:24)
[2020-04-07] MEDS: ENOXAPARIN SODIUM 40 MG/0.4 ML SYRINGE SQ SCH ×2 (08:25→21:13)
[2020-04-07] MEDS: BENZONATATE 100 MG CAPSULE PO SCH ×3 (08:25→21:11)
[2020-04-07 12:00] VITALS: BP 121/71
[2020-04-07] MEDS ORDERED: APIX2.5T PO (13:08)
[2020-04-07] MEDS ORDERED: METF-444 PO (13:08)
[2020-04-07 16:00] VITALS: BP 122/72
--- NOTE | 2020-04-07 17:48 | NUR ---
Pt update: Pt aaox4. Airway patent breathing even and unlabored. No complaints all day. Pt remains on 1LNC all day. O2 Sat 88-91%. Discharge held. Pt requiring home 02. Per MARA Patrick no concentrator available at this time. Dr Meade made aware. Orders to hold discharge today and wean pt off o2 as tolerated. Pt made aware of plan of care. Will endorse to PM nurse
[2020-04-07 19:48] VITALS: BP 115/67
[2020-04-07] MEDS: INSULIN GLARGINE 100 UNITS/ML 10 ML VIAL SQ SCH (21:15)
[2020-04-07 23:51] VITALS: BP 107/71
[2020-04-08 03:38] VITALS: BP 102/60
[2020-04-08 04:19] LABS: BASOPHILS % (AUTO) 0.2 % (0.0-5.0); EOSINOPHILS % (AUTO) 0.2 % (0.0-8.0); HEMATOCRIT 40.7 % (42-54); LYMPHOCYTES % (AUTO) 17.3 % (21.0-51.0); MEAN CORPUSCULAR HEMOGLOBIN 29.9 pg (27.0-33.0); MEAN CORPUSCULAR HGB CONC 34.9 g/dL (32.0-36.0); MEAN CORPUSCULAR VOLUME 85.7 fL (79-99); MONOCYTES % (AUTO) 7.3 % (3.0-13.0); NEUTROPHILS % (AUTO) 73.7 % (40.0-77.0); PLATELET COUNT (AUTO) 361 K/uL (130-400); RED BLOOD CELL COUNT(AUTO) 4.75 MIL/uL (4.50-6.20); RED CELL DISTRIBUTION WIDTH 12.3 % (11.0-15.5)
[2020-04-08 04:30] LABS: ALANINE AMINOTRANSFERASE 42 U/L (12-78); ALBUMIN 2.7 g/dL (3.5-5.0); ASPARTATE AMINOTRANSFERASE 18 U/L (10-37); BILIRUBIN,TOTAL 0.6 mg/dL (0.2-1.0); CARBON DIOXIDE 28 mmol/L (21-32); CHLORIDE 102 mmol/L (101-111); CREATININE 0.8 mg/dL (0.5-1.5); GLOMERULAR FILTR. RATE CALC 104 mL/min (>60); GLUCOSE,RANDOM 73 mg/dL (70-105); LACTATE DEHYDROGENASE 190 U/L (81-234); POTASSIUM 3.8 mmol/L (3.5-5.1); SODIUM SERUM 135 mmol/L (136-145); TOTAL PROTEIN, SERUM 6.5 g/dL (6.0-8.3); UREA NITROGEN, BLOOD 18 mg/dL (7-18)
[2020-04-08] MEDS: INSULIN HUMULIN R 100 UNIT/ML 3ML SQ SCH ×2 (07:30→11:30)
[2020-04-08 07:55] VITALS: BP 111/59
[2020-04-08] MEDS: DEXAMETHASONE 4 MG TAB PO SCH (10:16)
[2020-04-08] MEDS: FAMOTIDINE 20MG TAB 20 MG TAB PO SCH (10:16)
[2020-04-08] MEDS: ZINC SULFATE 220 CAPSULE PO SCH (10:16)
[2020-04-08] MEDS: ASCORBIC ACID 500 MG TAB PO SCH (10:16)
[2020-04-08] MEDS: BENZONATATE 100 MG CAPSULE PO SCH ×2 (10:16→14:53)
[2020-04-08] MEDS: ENOXAPARIN SODIUM 40 MG/0.4 ML SYRINGE SQ SCH (10:17)
[2020-04-08 12:00] VITALS: BP 120/65
--- NOTE | 2020-04-08 12:06 | NUR ---
DC PLAN VISITED WITH PATIENT. O2 JESUS SIGNED. INFO SENT TO [facility]ALTH SYSTEM PATIENT. PATIENT LENT EQUIPMENT EXPLAINED TO RETURN ONCE [facility] DELIVERS THEIR EQUIPMENT. PLEASE BRING TANK BACK SOON POSSIBLE TO LET NEXT PATIENT BE ABLE TO GO HOME. PATIENT VERBALIZED UNDERSTANDING. CONCENTRATOR [phone] AND 02 TANK [phone]. 02 FORM LENDING SIGNED. ONE COPY TO PATIENT, ONE COPY TO CHART, AND ONE COPY TO LENDING BINDER. LET NURSE KNOW OF OKAY TO DC WITH EQUIPMENT. Addendum: 04/08/20 at 1210 by SARA WILSON RN CM Amended: Links added.
--- NOTE | 2020-04-08 16:27 | NUR ---
Discharge Pt clear for discharge. VS stable and wnl. Airway patent, breathing even and unlabored on 1LNC. AAOX4. Pt educated on discharge instructions, Medication teaching and follow up with Dr Gayle. Thorough teaching, return demonstration given to use of home o2, incentive spirometer given and teaching rendered Pt verbalizes understanding. Pt wheeled out safely out of department. picked up pt// MAD
== END 2020-04-08 16:03 | disposition home or self-care (01) | DRG 177 ==
LOC: EDH 20:03 → EDHIP 03-26 02:09 → 2AH 03-27 18:27
PROVIDERS: ADMIT Internal Medicine; ATTEND Internal Medicine
PROC: XW13325 Transfusion of Convalescent Plasma (Nonautologous) into Peripheral Vein, Percutaneous Approach, New Technology Group 5 (ICD-10-PCS; principal; 2020-03-27)
PROC: XW033E5 Introduction of Remdesivir Anti-infective into Peripheral Vein, Percutaneous Approach, New Technology Group 5 (ICD-10-PCS; 2020-03-27)
DX: U07.1 COVID-19 (principal); J12.89 Other viral pneumonia; J96.01 Acute respiratory failure with hypoxia; E11.65 Type 2 diabetes mellitus with hyperglycemia; E78.5 Hyperlipidemia, unspecified; E86.9 Volume depletion, unspecified; I10 Essential (primary) hypertension; Z79.01 Long term (current) use of anticoagulants; Z79.4 Long term (current) use of insulin
CPT/HCPCS: 36415; 36600; 71045; 80053; 81001; 82728; 82803; 82948; 83605; 83615; 83880; 84145; 84484; 85025; 85378; 85610; 85730; 86140; 86850; 86900; 86901; 86927; 87040; 87426; 87804; 93005; 94760; G0378; J0456; J0696; J1100; J1650; J1815; J1956; J2920; J3490; J7050; J8540

== ENCOUNTER 2020-04-15 12:03 | Emergency (ER) | payer OTHER ==
[~2020-04-15 12:03] MED LIST: APIX2.5T PO; METF-444 PO
[2020-04-15] MEDS ORDERED: ACETAMINOPHEN-CODEINE 300/30MG TAB ONE (13:55)
[2020-04-15 14:42] LABS: BASOPHILS % (AUTO) 0.6 % (0.0-5.0); EOSINOPHILS % (AUTO) 4.1 % (0.0-8.0); HEMATOCRIT 39.6 % (42-54); LYMPHOCYTES % (AUTO) 12.4 % (21.0-51.0); MEAN CORPUSCULAR HEMOGLOBIN 29.3 pg (27.0-33.0); MEAN CORPUSCULAR HGB CONC 33.3 g/dL (32.0-36.0); NEUTROPHILS % (AUTO) 73.7 % (40.0-77.0); PLATELET COUNT (AUTO) 203 K/uL (130-400); RED CELL DISTRIBUTION WIDTH 12.8 % (11.0-15.5)
[2020-04-15 14:43] LABS: CREATININE 0.7 mg/dL (0.5-1.5); POTASSIUM 3.9 mmol/L (3.5-5.1)
[2020-04-15 14:48] LABS: ALBUMIN 2.7 g/dL (3.5-5.0); BILIRUBIN,TOTAL 0.3 mg/dL (0.2-1.0); TOTAL PROTEIN, SERUM 6.7 g/dL (6.0-8.3)
== END 2020-04-15 16:25 | disposition home or self-care (01) ==
LOC: EDH 12:03
DX: M79.10 Myalgia, unspecified site (principal); F41.9 Anxiety disorder, unspecified; Z86.19 Personal history of other infectious and parasitic diseases
CPT/HCPCS: 36415; 80053; 82550; 85025

== ENCOUNTER 2020-04-28 10:19 | Emergency (ER) | payer OTHER ==
[2020-04-28 10:48] LABS: BASOPHILS % (AUTO) 1.1 % (0.0-5.0); EOSINOPHILS % (AUTO) 0.6 % (0.0-8.0); HEMATOCRIT 40.4 % (42-54); MEAN CORPUSCULAR HEMOGLOBIN 29.7 pg (27.0-33.0); MEAN CORPUSCULAR HGB CONC 34.7 g/dL (32.0-36.0); MEAN CORPUSCULAR VOLUME 85.6 fL (79-99); MONOCYTES % (AUTO) 8.7 % (3.0-13.0); NEUTROPHILS % (AUTO) 70.8 % (40.0-77.0); PLATELET COUNT (AUTO) 625 K/uL (130-400); RED BLOOD CELL COUNT(AUTO) 4.72 MIL/uL (4.50-6.20); RED CELL DISTRIBUTION WIDTH 13.2 % (11.0-15.5); WHITE BLOOD COUNT (AUTO) 10.9 K/uL (4.8-10.8)
[2020-04-28 11:21] LABS: APPEARANCE,URINE Clear (CLEAR); BILIRUBIN,URINE Negative (NEGATIVE); COLOR,URINE Yellow (YELLOW); GLUCOSE, URINE (UA) Negative (NEGATIVE); KETONES,URINE Negative (NEGATIVE); LEUKOCYTE ESTERASE ,URINE Negative (NEGATIVE); NITRATE,URINE Negative (NEGATIVE); OCCULT BLOOD,URINE Moderate (NEGATIVE); PH,URINE 5.5 (5.0-8.0); PROTEIN,URINE Negative (NEGATIVE)
[2020-04-28 11:25] LABS: POTASSIUM 3.9 mmol/L (3.5-5.1)
[2020-04-28 11:31] LABS: ALBUMIN 3.4 g/dL (3.5-5.0); BILIRUBIN,TOTAL 0.3 mg/dL (0.2-1.0); TOTAL PROTEIN, SERUM 7.5 g/dL (6.0-8.3)
[2020-04-28 11:35] LABS: BACTERIA,URINE Rare /HPF (None Seen); SQUAMOUS EPITHELIAL CELL,UR Rare /HPF (0-2); WBC,URINE 0-1 /HPF (0-1)
[2020-04-28] MEDS ORDERED: BISACODYL 10 MG SUPP.RECT RC ONE (12:43)
[2020-04-28] MEDS ORDERED: LIDOCAINE 5% TOPICAL PATCH TP ONE (14:05)
== END 2020-04-28 16:17 | disposition home or self-care (01) ==
LOC: EDH 10:19
DX: R33.9 Retention of urine, unspecified (principal); K59.00 Constipation, unspecified; M79.605 Pain in left leg; Z79.899 Other long term (current) drug therapy; Z86.19 Personal history of other infectious and parasitic diseases
CPT/HCPCS: 36415; 51702; 72131; 74018; 80053; 81001; 82948; 83605; 84145; 85025; 93971

== ENCOUNTER 2020-06-10 12:18 | Inpatient (IN) | payer OTHER ==
[~2020-06-10] VITALS: Ht 165.1 cm; Wt 58.1 kg
[2020-06-10 12:45] LABS: APPEARANCE,URINE Clear (CLEAR); BILIRUBIN,URINE Negative (NEGATIVE); COLOR,URINE Dark Yellow (YELLOW); GLUCOSE, URINE (UA) 500 mg/dL (NEGATIVE); KETONES,URINE Trace mg/dL (NEGATIVE); LEUKOCYTE ESTERASE ,URINE Negative (NEGATIVE); NITRATE,URINE Negative (NEGATIVE); OCCULT BLOOD,URINE Negative (NEGATIVE); PROTEIN,URINE POS 1+ mg/dL (NEGATIVE)
[2020-06-10 12:53] LABS: BASOPHILS % (AUTO) 0.5 % (0.0-5.0); EOSINOPHILS % (AUTO) 0.1 % (0.0-8.0); HEMATOCRIT 41.4 % (42-54); LYMPHOCYTES % (AUTO) 6.6 % (21.0-51.0); MEAN CORPUSCULAR HEMOGLOBIN 30.5 pg (27.0-33.0); MEAN CORPUSCULAR HGB CONC 34.3 g/dL (32.0-36.0); MEAN CORPUSCULAR VOLUME 88.8 fL (79-99); MONOCYTES % (AUTO) 2.9 % (3.0-13.0); NEUTROPHILS % (AUTO) 89.4 % (40.0-77.0); PLATELET COUNT (AUTO) 316 K/uL (130-400); RED BLOOD CELL COUNT(AUTO) 4.66 MIL/uL (4.50-6.20); WHITE BLOOD COUNT (AUTO) 23.8 K/uL (4.8-10.8)
[2020-06-10 12:53] LABS: BACTERIA,URINE Rare /HPF (None Seen); MUCUS,URINE Many LPF (None Seen); RBC,URINE 0-1 /HPF (0-1); SQUAMOUS EPITHELIAL CELL,UR Rare /HPF (0-2)
[2020-06-10] MEDS ORDERED: ONDANSETRON 4MG INJ ONE (12:54)
[2020-06-10] MEDS ORDERED: 0.9%NACL 1000ML 1,000 ML IV ONE (12:54)
[2020-06-10] MEDS ORDERED: MORPHINE 4 MG SYG ONE (12:55)
[2020-06-10 13:12] LABS: CREATININE 1.2 mg/dL (0.5-1.5); POTASSIUM 3.6 mmol/L (3.5-5.1)
[2020-06-10 13:16] LABS: ALBUMIN 3.5 g/dL (3.5-5.0); BILIRUBIN,TOTAL 0.8 mg/dL (0.2-1.0)
[2020-06-10] MEDS ORDERED: IOHEXOL-350 75 ML VIAL IV ONE (13:27)
[2020-06-10] MEDS ORDERED: ZOSYN 3.375GM+NS 50ML 50 ML IV ONE ×2 (14:07→22:33)
[2020-06-10] MEDS ORDERED: LACTULOSE 20 GM/30 ML UDCUP PO PRN (16:15)
[2020-06-10] MEDS ORDERED: ONDANSETRON 4MG INJ IV PRN (16:15)
[2020-06-10] MEDS ORDERED: ACETAMINOPHEN 325 MG TAB PO PRN ×2 (16:15)
[2020-06-10] MEDS ORDERED: GLUCAGON 1MG KIT 1 MG ML IM PRN (16:15)
[2020-06-10] MEDS ORDERED: FAMOTIDINE 20MG VIAL IV ONE (22:33)
[2020-06-11] MEDS ORDERED: ONDANSETRON 4MG INJ ONE (01:26)
[2020-06-11] MEDS ORDERED: MORPHINE 2 MG SYG ONE (01:27)
[2020-06-11 04:35] LABS: BASOPHILS % (AUTO) 0.6 % (0.0-5.0); EOSINOPHILS % (AUTO) 0.4 % (0.0-8.0); HEMATOCRIT 35.7 % (42-54); LYMPHOCYTES % (AUTO) 9.3 % (21.0-51.0); MEAN CORPUSCULAR HEMOGLOBIN 30.7 pg (27.0-33.0); MEAN CORPUSCULAR HGB CONC 34.2 g/dL (32.0-36.0); MEAN CORPUSCULAR VOLUME 89.7 fL (79-99); MONOCYTES % (AUTO) 5.6 % (3.0-13.0); NEUTROPHILS % (AUTO) 83.5 % (40.0-77.0); PLATELET COUNT (AUTO) 247 K/uL (130-400); RED BLOOD CELL COUNT(AUTO) 3.98 MIL/uL (4.50-6.20); RED CELL DISTRIBUTION WIDTH 14.8 % (11.0-15.5); WHITE BLOOD COUNT (AUTO) 17.4 K/uL (4.8-10.8)
[2020-06-11 04:47] LABS: CREATININE 0.8 mg/dL (0.5-1.5); POTASSIUM 3.6 mmol/L (3.5-5.1)
[2020-06-11] MEDS ORDERED: ZOSYN 3.375GM+NS 50ML 50 ML IV ONE (08:43)
[2020-06-11] MEDS: FAMOTIDINE 20MG VIAL IV SCH ×2 (09:00→20:50)
[2020-06-11] MEDS ORDERED: MORPHINE 4 MG SYG ONE (10:20)
[2020-06-11] MEDS: INSULIN HUMULIN R 100 UNIT/ML 3ML SQ SCH ×3 (12:00→23:48)
[2020-06-11] MEDS: 0.9%NACL 1000ML 1,000 ML IV SCH ×2 (12:15→21:42)
[2020-06-11] MEDS: ZOSYN 3.375GM+NS 50ML 50 ML IV SCH ×2 (13:00→20:49)
[2020-06-11 14:23] VITALS: BP_SYST 123; BP_SYST 138; BP_DIAS 47; BP_DIAS 72
[2020-06-11 16:26] VITALS: BP 122/76
[2020-06-11 19:50] VITALS: BP 134/72
[2020-06-11] MEDS: MORPHINE 2 MG SYG IV PRN (20:50)
[2020-06-11 23:28] VITALS: BP 125/72
[2020-06-12 03:55] VITALS: BP 138/78
[2020-06-12] MEDS: ZOSYN 3.375GM+NS 50ML 50 ML IV SCH ×3 (04:05→19:56)
[2020-06-12 05:28] LABS: BASOPHILS % (AUTO) 0.6 % (0.0-5.0); EOSINOPHILS % (AUTO) 1.4 % (0.0-8.0); HEMATOCRIT 34.6 % (42-54); LYMPHOCYTES % (AUTO) 9.1 % (21.0-51.0); MEAN CORPUSCULAR HEMOGLOBIN 30.2 pg (27.0-33.0); MEAN CORPUSCULAR HGB CONC 33.8 g/dL (32.0-36.0); MEAN CORPUSCULAR VOLUME 89.4 fL (79-99); MONOCYTES % (AUTO) 6.5 % (3.0-13.0); NEUTROPHILS % (AUTO) 81.9 % (40.0-77.0); PLATELET COUNT (AUTO) 290 K/uL (130-400); RED BLOOD CELL COUNT(AUTO) 3.87 MIL/uL (4.50-6.20); RED CELL DISTRIBUTION WIDTH 14.6 % (11.0-15.5); WHITE BLOOD COUNT (AUTO) 15.5 K/uL (4.8-10.8)
[2020-06-12] MEDS: INSULIN HUMULIN R 100 UNIT/ML 3ML SQ SCH ×4 (05:34→21:18)
[2020-06-12] MEDS: DEXTROSE 50%-WATER 50 ML DISP.SYRIN IV PRN ×2 (05:35→12:09)
[2020-06-12 05:51] LABS: ALBUMIN 2.7 g/dL (3.5-5.0); BILIRUBIN,TOTAL 0.8 mg/dL (0.2-1.0); CREATININE 0.7 mg/dL (0.5-1.5); POTASSIUM 3.8 mmol/L (3.5-5.1); TOTAL PROTEIN, SERUM 6.3 g/dL (6.0-8.3)
[2020-06-12 08:40] VITALS: BP 140/84
[2020-06-12] MEDS: FAMOTIDINE 20MG VIAL IV SCH ×2 (09:19→19:56)
[2020-06-12] MEDS: 0.9%NACL 1000ML 1,000 ML IV SCH ×3 (09:20→19:32)
[2020-06-12] MEDS: MORPHINE 2 MG SYG IV PRN (09:20)
[2020-06-12 11:49] VITALS: BP 139/80
[2020-06-12] MEDS: DOXYCYCLINE 100MG+NS 250ML 250 ML IV SCH ×2 (12:08→22:20)
[2020-06-12 15:56] VITALS: BP 143/81
[2020-06-12] MEDS: DEXTROSE 5 % AND 0.9 % NACL 1,000 ML IV SCH ×2 (17:00→21:19)
[2020-06-12 20:28] VITALS: BP 97/56
[2020-06-12] MEDS ORDERED: DOXYCYCLINE HYCLATE 100 MG TABLET PO SCH (21:00)
[2020-06-12 23:49] VITALS: BP 162/90
[2020-06-13] MEDS: DEXTROSE 5 % AND 0.9 % NACL 1,000 ML IV SCH ×2 (03:26→13:31)
[2020-06-13] MEDS: MORPHINE 2 MG SYG IV PRN ×2 (03:27→10:05)
[2020-06-13 04:00] VITALS: BP 140/88
[2020-06-13] MEDS: ZOSYN 3.375GM+NS 50ML 50 ML IV SCH ×3 (04:11→19:51)
[2020-06-13 05:21] LABS: BASOPHILS % (AUTO) 0.8 % (0.0-5.0); EOSINOPHILS % (AUTO) 1.8 % (0.0-8.0); HEMATOCRIT 37.4 % (42-54); LYMPHOCYTES % (AUTO) 11.7 % (21.0-51.0); MEAN CORPUSCULAR HEMOGLOBIN 30.1 pg (27.0-33.0); MEAN CORPUSCULAR HGB CONC 34.5 g/dL (32.0-36.0); MEAN CORPUSCULAR VOLUME 87.4 fL (79-99); MONOCYTES % (AUTO) 7.5 % (3.0-13.0); NEUTROPHILS % (AUTO) 77.7 % (40.0-77.0); PLATELET COUNT (AUTO) 346 K/uL (130-400); RED BLOOD CELL COUNT(AUTO) 4.28 MIL/uL (4.50-6.20); RED CELL DISTRIBUTION WIDTH 14.2 % (11.0-15.5); WHITE BLOOD COUNT (AUTO) 11.9 K/uL (4.8-10.8)
[2020-06-13 05:31] LABS: HEMOGLOBIN A1C 5.7 % (4.0-6.0)
[2020-06-13] MEDS: INSULIN HUMULIN R 100 UNIT/ML 3ML SQ SCH ×4 (05:50→19:54)
[2020-06-13 05:54] LABS: ALBUMIN 2.8 g/dL (3.5-5.0); BILIRUBIN,TOTAL 0.8 mg/dL (0.2-1.0); CREATININE 0.7 mg/dL (0.5-1.5); POTASSIUM 3.2 mmol/L (3.5-5.1); THYROID STIMULATING HORMONE 2.95 uIU/mL (0.36-3.74); TOTAL PROTEIN, SERUM 6.5 g/dL (6.0-8.3)
[2020-06-13 06:07] LABS: INR 1.12 (0.85-1.15); PROTHROMBIN TIME 11.9 SEC (9.6-11.6)
[2020-06-13 06:09] LABS: PARTIAL THROMBOPLASTIN TIME 30.5 SEC (26.3-35.5)
[2020-06-13 08:05] VITALS: BP 157/65
[2020-06-13] MEDS ORDERED: POTASSIUM CHLORIDE 10% ELIXIR 20 MEQ/15 ML UDCUP PO PRN ×2 (09:30)
[2020-06-13] MEDS ORDERED: POTASSIUM CHLORIDE 20MEQ/100ML 100 ML IV PRN ×4 (09:30)
[2020-06-13] MEDS ORDERED: KCL 20 MEQ ERTAB PO PRN (09:30)
[2020-06-13] MEDS: GABAPENTIN 100 MG CAPSULE PO SCH ×3 (10:00→19:51)
[2020-06-13] MEDS: KCL 20 MEQ ERTAB PO PRN ×4 (10:01→13:32)
[2020-06-13] MEDS: DOXYCYCLINE 100MG+NS 250ML 250 ML IV SCH ×2 (10:02→20:41)
[2020-06-13 11:30] VITALS: BP 164/91
[2020-06-13 16:16] VITALS: BP 153/88
[2020-06-13 20:20] VITALS: BP 120/89
[2020-06-13 23:41] VITALS: BP 151/88
[2020-06-14 04:15] VITALS: BP 147/95
[2020-06-14] MEDS: ZOSYN 3.375GM+NS 50ML 50 ML IV SCH ×2 (04:29→13:00)
[2020-06-14] MEDS: DEXTROSE 5 % AND 0.9 % NACL 1,000 ML IV SCH (04:30)
[2020-06-14] MEDS: MORPHINE 2 MG SYG IV PRN (04:38)
[2020-06-14 05:17] LABS: BASOPHILS % (AUTO) 1.3 % (0.0-5.0); EOSINOPHILS % (AUTO) 3.4 % (0.0-8.0); LYMPHOCYTES % (AUTO) 19.7 % (21.0-51.0); MEAN CORPUSCULAR HEMOGLOBIN 29.6 pg (27.0-33.0); MEAN CORPUSCULAR HGB CONC 33.6 g/dL (32.0-36.0); MONOCYTES % (AUTO) 10.5 % (3.0-13.0); NEUTROPHILS % (AUTO) 64.4 % (40.0-77.0); PLATELET COUNT (AUTO) 395 K/uL (130-400); RED BLOOD CELL COUNT(AUTO) 4.43 MIL/uL (4.50-6.20); RED CELL DISTRIBUTION WIDTH 14.3 % (11.0-15.5); WHITE BLOOD COUNT (AUTO) 8.6 K/uL (4.8-10.8)
[2020-06-14 05:46] LABS: ALBUMIN 2.8 g/dL (3.5-5.0); BILIRUBIN,TOTAL 0.5 mg/dL (0.2-1.0); CREATININE 0.7 mg/dL (0.5-1.5); POTASSIUM 3.6 mmol/L (3.5-5.1); TOTAL PROTEIN, SERUM 6.6 g/dL (6.0-8.3)
[2020-06-14] MEDS: INSULIN HUMULIN R 100 UNIT/ML 3ML SQ SCH ×2 (05:59→11:06)
[2020-06-14] MEDS: KCL 20 MEQ ERTAB PO PRN ×2 (06:04→09:51)
[2020-06-14 08:06] VITALS: BP 149/96
[2020-06-14] MEDS: GABAPENTIN 100 MG CAPSULE PO SCH (09:04)
[2020-06-14] MEDS: DOXYCYCLINE 100MG+NS 250ML 250 ML IV SCH (09:51)
[2020-06-14] MEDS ORDERED: GABA-529 PO (10:24)
[2020-06-14] MEDS ORDERED: DOXY100C5 PO (10:24)
[2020-06-14 11:25] VITALS: BP 153/91
== END 2020-06-14 14:16 | disposition home or self-care (01) | DRG 392 ==
LOC: EDH 12:18 → EDHIP 16:02 → 3AH 06-11 14:14
PROVIDERS: ADMIT Hospitalist; ATTEND Hospitalist
DX: K57.20 Diverticulitis of large intestine with perforation and abscess without bleeding (principal); E87.1 Hypo-osmolality and hyponatremia; N39.0 Urinary tract infection, site not specified; M51.26 Other intervertebral disc displacement, lumbar region; M79.605 Pain in left leg; Z86.16 Personal history of COVID-19; E11.65 Type 2 diabetes mellitus with hyperglycemia; Z86.010 Personal history of colon polyps; Z87.19 Personal history of other diseases of the digestive system; Z83.3 Family history of diabetes mellitus
CPT/HCPCS: 36415; 72148; 74177; 80048; 80053; 81001; 82150; 82948; 83036; 83690; 84443; 85025; 85610; 85730; 87077; 87088; 87186; 93005; 93971; 97039; 99291; G0378; J2270; J2405; J2543; J3490; J7030; J7042; J7070; Q9967; U0003

== ENCOUNTER 2021-10-29 07:03 | Emergency (ER) | payer BC, OTHER ==
[~2021-10-29] VITALS: Ht 160 cm; Wt 65.8 kg
[~2021-10-29 07:03] MED LIST changes: -APIX2.5T PO; +DOXY100C5 PO; +GABA-529 PO; -METF-444 PO
[2021-10-29 07:21] LABS: BASOPHILS % (AUTO) 0.8 % (0.0-5.0); EOSINOPHILS % (AUTO) 2.8 % (0.0-8.0); HEMATOCRIT 46.9 % (42-54); LYMPHOCYTES % (AUTO) 17.2 % (21.0-51.0); MEAN CORPUSCULAR HEMOGLOBIN 29.4 pg (27.0-33.0); MEAN CORPUSCULAR HGB CONC 33.9 g/dL (32.0-36.0); MEAN CORPUSCULAR VOLUME 86.7 fL (79-99); MONOCYTES % (AUTO) 8.9 % (3.0-13.0); PLATELET COUNT (AUTO) 294 K/uL (130-400); RED BLOOD CELL COUNT(AUTO) 5.41 MIL/uL (4.50-6.20); RED CELL DISTRIBUTION WIDTH 13.3 % (11.0-15.5)
[2021-10-29] MEDS: NITROGLYCERIN 0.4 MG SL TAB SL PRN ×2 (07:29→07:34)
[2021-10-29] MEDS ORDERED: ASPIRIN 81MG CHEW TAB PO ONE (07:30)
[2021-10-29 07:34] LABS: INR 0.94 (0.85-1.15); PROTHROMBIN TIME 10.3 SEC (9.6-11.6)
[2021-10-29 07:35] LABS: PARTIAL THROMBOPLASTIN TIME 29.1 SEC (26.3-35.5)
[2021-10-29 07:46] LABS: B-TYPE NATRIURETIC PEPTIDE 19 pg/mL (0-100)
[2021-10-29 07:59] LABS: ALBUMIN 4.1 g/dL (3.5-5.0); BILIRUBIN,TOTAL 0.8 mg/dL (0.2-1.0); MAGNESIUM 1.9 mg/dL (1.80-2.40); POTASSIUM 4.2 mmol/L (3.5-5.1)
[2021-10-29] MEDS ORDERED: KETOROLAC 30MG VIAL (30MG/ML) IVP ONE (08:30)
[2021-10-29 09:11] LABS: APPEARANCE,URINE Clear (CLEAR); BILIRUBIN,URINE Negative (NEGATIVE); COLOR,URINE Yellow (YELLOW); GLUCOSE, URINE (UA) Negative (NEGATIVE); KETONES,URINE 15 mg/dL (NEGATIVE); LEUKOCYTE ESTERASE ,URINE Trace (NEGATIVE); NITRATE,URINE Negative (NEGATIVE); OCCULT BLOOD,URINE Negative (NEGATIVE); PROTEIN,URINE Trace mg/dL (NEGATIVE)
[2021-10-29 09:17] LABS: AMPHET/METH SCREEN,URINE NEGATIVE (NEGATIVE); BARBITURATE SCREEN, URINE NEGATIVE (NEGATIVE); BENZODIAZEPINES SCREEN,URINE NEGATIVE (NEGATIVE); CANNABINOID SCREEN,URINE NEGATIVE (NEGATIVE); COCAINE SCREEN,URINE NEGATIVE (NEGATIVE); OPIATE SCREEN,URINE NEGATIVE (NEGATIVE); PHENCYCLIDINE SCREEN,URINE NEGATIVE (NEGATIVE)
[2021-10-29 09:20] LABS: RBC,URINE 0-1 /HPF (0-1)
[2021-10-29 09:21] LABS: BACTERIA,URINE Few /HPF (None Seen); WBC,URINE 0-1 /HPF (0-1)
[2021-10-29 09:57] VITALS: BP 116/74
[2021-10-29] MEDS ORDERED: NAPR-1196 PO (10:38)
== END 2021-10-29 10:49 | disposition home or self-care (01) ==
LOC: EDH 07:03
DX: R07.89 Other chest pain (principal); Z79.899 Other long term (current) drug therapy
CPT/HCPCS: 36415; 71045; 80053; 80061; 80305; 81001; 82550; 83735; 83874; 83880; 84484 ×2; 85025; 85378; 85610; 85730; 93005; 96374; 99284; J1885